=== PATIENT | male | born 1970 ===

== ENCOUNTER → 2023-01-02 | Outpatient (CLI) | payer OTHER ==
[2023-01-02 13:07] LABS: Bun/Creatinine Ratio 21.3 (12.0-20.0); Calcium, Blood 9.3 mg/dL (8.5-10.1); Creatinine, Blood 0.8 mg/dL (0.60-1.20); Magnesium, Blood 1.9 mg/dL (1.6-2.4); Potassium, Blood 4.1 mmol/L (3.5-5.5)
== END | disposition home or self-care (01) ==
LOC: LAB SHORT 12:56 → LAB 12:56
PROVIDERS: Family Medicine
DX: R94.31 Abnormal electrocardiogram [ECG] [EKG] (principal)
CPT/HCPCS: 80048; 83735; 84484